=== PATIENT | male | born 1980 | race Caucasian/White ===

== ENCOUNTER 2017-08-03 17:28 | Emergency (ER) | payer OTHER ==
[~2017-08-03] VITALS: Ht 180.3 cm; Wt 123.0 kg
[2017-08-03 19:11] LABS: APPEARANCE SL.HAZY ((CLEAR)); BILIRUBIN NEGATIVE; BLOOD NEGATIVE; COLOR YELLOW ((YELLOW)); GLUCOSE (STRIP) NEGATIVE; KETONES NEGATIVE; LEUKOCYTES NEGATIVE; NITRITE NEGATIVE; PROTEIN (STRIP) 30; SPECIFIC GRAVITY 1.028 (1.000-1.030)
[2017-08-03 19:19] LABS: HEMATOCRIT 44.5 % (38.0-50.0); HEMOGLOBIN 15.4 G/DL (12.5-16.6); MCH 30.3 PG (29.0-34.0); MCHC 34.6 G/DL (30.0-36.0); MCV 87.4 FL (86-99); PLATELET COUNT 215 K/uL (156-360); RBC DIS.WIDTH-SD 38.8 % (39-53); RED BLOOD COUNT 5.09 M/uL (4.00-5.50)
[2017-08-03 19:24] LABS: BACTERIA 1+ /HPF; CALCIUM OXALATE CRYSTALS 4+ /HPF; EPITHELIAL CELLS RARE /HPF; MUCUS 3+ /LPF; RED BLOOD CELLS 0-5 /HPF (0-5); UCUL ADDED? NO; WHITE BLOOD CELLS 0-5 /HPF (0-5)
[2017-08-03] MEDS ORDERED: RANITIDINE HCL150 M1 PO (19:37)
[2017-08-03] MEDS ORDERED: INDERAL10 MG PO (19:38)
[2017-08-03] MEDS ORDERED: SYNTHROID75 MCG PO (19:39)
[2017-08-03 19:40] LABS: ALBUMIN 4.5 g/dL (3.2-4.8); CHLORIDE 101 mEq/L (99-109); POTASSIUM 4.4 mEq/L (3.7-5.4); SODIUM 140 mEq/L (136-147)
[2017-08-03 19:42] LABS: GLUCOSE 116 mg/dL (70-99); TOTAL PROTEIN 7.8 g/dL (6.4-8.3)
[2017-08-03 19:44] LABS: TOTAL BILIRUBIN 0.7 mg/dL (0.0-1.0)
[2017-08-03 19:46] LABS: ALKALINE PHOSPHATASE 81 IU/L (3-129); CREATININE 0.9 mg/dL (0.6-1.3)
[2017-08-03 19:47] LABS: GFR ESTIMATE (CALCULATED) > 59 mL/min/ (58.99-99999); UREA NITROGEN (BUN) 9 mg/dL (9-23)
[2017-08-03 19:48] LABS: AST (GOT) 14 IU/L (2-34)
[2017-08-03 19:49] LABS: ALT (GPT) 15 IU/L (3-49)
[2017-08-03 20:09] LABS: LIPASE 16 U/L (1.0-51.0)
[2017-08-03 21:25] VITALS: BP 118/89
== END 2017-08-03 21:26 | disposition home or self-care (01) ==
LOC: EME 17:28
DX: K80.20 Calculus of gallbladder without cholecystitis without obstruction (principal); K59.00 Constipation, unspecified; K76.0 Fatty (change of) liver, not elsewhere classified; R05 Cough; F17.200 Nicotine dependence, unspecified, uncomplicated
CPT/HCPCS: 74018; 76705; 80053; 81003; 83690; 85027; 99281; 99284